=== PATIENT | female | born 1975 | race Caucasian/White ===

== ENCOUNTER 2018-01-05 15:05 | Emergency (ER) | payer BC ==
[2018-01-05 15:09] VITALS: BP 139/80; BMI 36.3
--- NOTE | 2018-01-05 15:44 | DR.GENAD ---
HPI - PCP Primary Care Physician: TRISTAN - Complaint/Symptoms Chief Complaint Doctors Comments: Patient admits to falling while at [employer] today around 1230. Just inside the store entrance there was a puddle of water and she stepped in it and slipped, hit left knee and injured her left hip. Chief Complaint:: PATIENT STATED THAT SHE FELL WALKING INTO THE [employer] AND [employer]NEE AND HIP ON THE RIGHT HIP AND THEN FELL AGAIN ON THE LEFT SIDE. THIS OCCURED TODAY - Source History Provided: Patient - Mode of Arrival Mode of Arrival: Ambulatory - Timing Onset of Chief Complaint: 01/05/18 PMH - PMH Past Medical History: Yes Past Medical History: Anxiety, Hypertension, Hyperthyroidism Past Surgical History: Yes Surgical History: Hysterectomy, Tonsillectomy Past Surgical History Comment: TWO HEART ABLASION - Family History History of Family Medical Conditions: Yes Family Medical History: Diabetes Mellitus, [place], Coronary Artery Disease - Social History Does patient currently use any type of tobacco product: No Have you used tobacco products in the last 12 months: No Type of Tobacco Use: None Does any household member use tobacco: No Alcohol Use: Rarely Do you use any recreational Drugs:: No Lives With: Family Lives Where: Home - infectious screening In the last 2 months have you had wt loss of >10#?: NO Have you had fever, night sweats or hemotysis?: No Have you traveled outside the country in the last 6 months?: No ROS - Review of Systems Constitutional: No Symptoms Reported Eyes: No Symptoms Reported ENTM: No Symptoms Reported Respiratoy: No Symptoms Reported Cardiovascular: No Symptoms Reported Gastrointestinal/Abdominal: No Symptoms Reported Genitourinary: No Symptoms Reported Neurological: No Symptoms Reported Musculoskeletal: Knee Integumentary: No Symptoms Reported Hematologic/Lymphatic: No Symptoms Reported Endocrine: No Symptoms Reported Psychiatric: No Symptoms Reported All Other Systems: Reviewed and Negative PE - Vital Signs Vitals: Temperature 98.4 F Pulse Rate 90 Respiratory Rate 20 Blood Pressure 139/80 O2 Sat by Pulse Oximetry 96 - General Limitations: No Limitations General Appearance: Alert, In No Apparent Distress - Head Head Exam: Normal Inspection, Atraumatic - Eyes Eye exam: Normal Appearance, PERRL, EOMI - ENT ENT Exam: Normal Exam External Ear Exam: Normal External Inspection TM/Canal Exam: Bilateral Normal Nose Exam: Normal Nose Exam Mouth Exam: Normal Inspection Throat Exam: Normal Inspection - Neck Neck Exam: Normal Inspection, Full ROM - Chest Chest Inspection: Normal Inspection - Respiratory Respiratory Exam: Normal Lung Sounds Bilat Respiratory Exam: Bilateral Clear to Auscultation - Cardiovascular Cardiovascular Exam: Regular Rate, Normal Rhythm - Abdominal Exam Abdominal Exam: Normal Inspection Abdominal Tenderness: negative: RUQ, RLQ, LUQ, LLQ, Epigastrium, Suprapubic, Diffuse, Mild, Moderate, Severe, Other - Extremities Extremities Exam: Normal Inspection, Full ROM, Edema (left knee yared-patella), Joint Swelling - Back Back Exam: Normal Inspection, Full ROM - Neurologic Neurological Exam: Alert, Oriented X3, CN II-XII Intact - Psychiatric Psychiatric Exam: Normal Affect, Normal Mood - Skin Skin Exam: Warm, Dry, Intact ROR - XRAY XRAY Interpreted by: Radiologist (Left Knee: Examination of the left knee demonstrate no evidence for acute fracture, subluxation, or dislocation, medial and lateral tibiofemoral compartments demonstrate mild joint space narrowing and marginal osteophyte formation. The findings are compatible with mild degenerative joint disease. The lateral radiograph fails to demonstrate significant joint effusion. Patellofemoral compartment shows mild DJD and Moderate chondromalacia patella. The Left Hip is negative bony injury.) - Diagnosis Discharge Problem: Status post fall, Mild tricompartmental knee osteoarthriti Contusion of left hip Qualifiers: Encounter type: initial encounter Qualified Code(s): S70.02XA - Contusion of left hip, initial encounter - Discharge Plan Condition: Stable - Follow ups/Referrals Follow ups/Referrals: CESIA HUDSON [Primary Care Provider] - 3 days - Instructions
--- NOTE | 2018-01-05 17:04 | RAD ---
HISTORY: Left knee pain. Complete two-view series of the left knee joint. Comparisons: none. Findings: Examination of the left knee demonstrate no evidence for acute fracture, subluxation, or dislocation. The medial and lateral tibiofemoral compartments demonstrate mild joint space narrowing and margina l osteophyte formation. The findings are compatible with mild degenerative joint disease. The later al radiograph fails to demonstrate significant joint effusion. Patellofemoral compartment shows mild DJD and Moderate chondromalacia patella. IMPRESSION: Periarticular edema without acute fracture observed. Mild tricompartmental knee joint osteoarthritis. Moderate patellofemoral compartment DJD/chondromalacia. Reported By:
--- NOTE | 2018-01-05 17:07 | RAD ---
HISTORY: Hip Pain. Study: Two view series left hip joint. Comparison: None. Findings: A single frontal view of the pelvis demonstrates the pelvic ring to be intact. No evidence for acute fracture, subluxation, or dislocation of the hip can be observed. Frog leg views of the hip fails t o demonstrate evidence for fracture or significant joint abnormality. No lytic and or bone forming le sions are seen. No pubic symphyseal or SI joint diastatic injury is observed. No hip joint dislocatio n or subluxation is evident. If the patient's symptoms persist, follow-up MRI imaging of left hip sudha nt is recommended to exclude an occult fracture in this setting. Impression: 1. Negative left hip exam for acute bony injury. Reported By:
== END 2018-01-05 17:54 | disposition home or self-care (01) ==
LOC: ER 15:16
DX: S70.02XA Contusion of left hip, initial encounter (principal); M17.9 Osteoarthritis of knee, unspecified; W19.XXXA Unspecified fall, initial encounter; Y92.512 Supermarket, store or market as the place of occurrence of the external cause
CPT/HCPCS: 73501; 73560; 99282